=== PATIENT | male | born 1975 ===

== ENCOUNTER → 2022-03-17 15:16 | Outpatient (BNVA) | payer SELFPAY | PROVIDERS: Visit Provider Physician Assistant | DX: Z02.79 Encounter for issue of other medical certificate (principal) ==

== ENCOUNTER 2023-04-19 10:46 | Outpatient (REF) | payer BC, SELFPAY ==
[2023-04-19 13:59] LABS: Basophils Absolute Auto 0.1 X10*3/uL (0.0-0.2); Basophils Percent Auto 1.5 % (0-2); Eosinophils Absolute Auto 2.4 X10*3/uL (0.0-0.4); Eosinophils Percent Auto 36.3 % (0-4); Hemoglobin 14.3 g/dl (14.0-18.0); Imm Gran Abs Auto 0.01 X10*3/uL (0.00-0.03); Imm Gran Pct Auto 0.2 % (0.0-0.4); Lymphocytes Absolute Auto 2.1 X10*3/uL (1.2-4.9); Lymphocytes Percent Auto 31.5 % (20-40); MANUAL DIFF FLAG SCAN; Mean Corpuscular Hemoglobin 29.8 pg (27.0-33.0); Mean Corpuscular Volume 87.5 fL (80.0-98.0); Mean Platelet Volume 10.5 fL (9.4-12.4); Monocytes Absolute Auto 0.4 X10*3/uL (0.1-1.2); Monocytes Percent Auto 6.2 % (2-11); Neutrophils Absolute Auto 1.6 x10*3/uL (2.0-8.3); Neutrophils Percent Auto 24.3 % (45-73); Platelet Count 248 X10*3/uL (160-400); Red Cell Distribution Width 12.6 % (11.0-16.0); SCAN SMEAR FLAG 1; White Blood Count 6.5 X10*3/uL (4.8-10.8)
[2023-04-19 14:09] LABS: Alanine Aminotransferase 36 U/L (0-40); Albumin Level 4.4 g/dL (3.5-5.0); Alkaline Phosphatase 62 U/L (39-117); Anion Gap 10 (12-20); Aspartate Amino Transferase 26 U/L (5-37); Bilirubin Direct 0.2 mg/dL (0.0-0.5); Bilirubin Total 0.9 mg/dL (0.0-1.0); Blood Urea Nitrogen 20 mg/dL (9-16); Calcium 9.3 mg/dL (8.4-10.2); Carbon Dioxide 27 mmol/L (22-29); Chloride 107 mmol/L (96-108); Cholesterol 194 mg/dL (<200); Estimated Glomerular Filt Rate > 60; Glucose Random 87 mg/dL (60-115); HDL Cholesterol 41 mg/dL (>40); LDL Cholesterol Calculated 109 mg/dL (<100); Potassium 3.9 mmol/L (3.3-5.1); Sodium 140 mmol/L (135-145); Total Protein 7.4 g/dL (6.5-8.0); Triglycerides 222 mg/dL (<150)
[2023-04-19 14:33] LABS: PSA,Total (Free>4and<10) 0.25 ng/mL (0.00-4.00)
[2023-04-19 15:11] LABS: Estimated Average Glucose 97 mg/dL
[2023-04-19 15:20] LABS: SLIDE REVIEW VERIFIED
[2023-04-20 04:36] LABS: HIV AB/AG Nonreactive (Nonreactive); HIV Num 1 0.06 S/CO (0.00-0.99); ~HepC Num1 0.14 S/CO (0.00-0.79); ~Hepatitis C Antibody Nonreactive (Nonreactive)
== END 2023-04-19 10:47 | disposition home or self-care (01) ==
LOC: HO.HHCL 10:46
PROVIDERS: Visit Provider Internal Medicine
DX: Z12.5 Encounter for screening for malignant neoplasm of prostate (principal); Z11.4 Encounter for screening for human immunodeficiency virus [HIV]; Z13.6 Encounter for screening for cardiovascular disorders; R03.0 Elevated blood-pressure reading, without diagnosis of hypertension; R35.0 Frequency of micturition
CPT/HCPCS: 36415; 80048; 80061; 80076; 83036; 84153; 85025; 86803; 87389

== ENCOUNTER 2023-08-14 15:02 | Outpatient (AMB) | payer BC, SELFPAY ==
--- NOTE | 2023-08-14 15:12 | MHC.OFFVIS ---
Intake Visit Reasons: urinary frequency Intake Note: New patient is present for Urinary Frequency Recent PSA: 04/19/23 - 0.25 Antibiotic Allergies: Blood Thinner: None PVR: 0 Patient states that he frequently has to urinate during the day. States he has to go right away after eating fruit and drinking water. Patient reports that he gets up twice during the night to urinate. Patient has tried OTC medication that he states works that he purchased at [employer], pt can not remember the name of the OTC medication. Allergies No Known Allergies Allergy (Verified 08/14/23 15:37) Medication List - Last Reconciled 08/14/23 by Eran Zamarripa MD cyclobenzaprine 10 mg PO BEDTIME ibuprofen 600 mg PO TID mirabegron ER (Myrbetriq) 50 mg PO DAILY HPI Comments Details: Radu is a 47-year-old male who is here for evaluation due to urinary urgency and frequency. The patient is a trash collector truck driver and states that the lower urinary tract symptoms are bothersome because he has not able to easily get to a bathroom. He has currently not taking any medications for the prostate or bladder. I have discussed that there are certain professionals where patients may not use the bathroom often such as nurses, teachers and truck drivers fall into this category, where we do see bladder muscle remodeling over a period of time, causing bladder spasms. I have discussed avoiding dietary bladder irritants such as caffeine spicy foods acid foods or drinks including orange juice. The patient states he does drink a lot of coffee throughout the day to keep him alert but he will try to cut back on the caffeine intake. Urinalysis is negative leukocytes negative blood negative. Bladder scan PVR 0 mL. PSA--04/19/2023--0.25 ng/mL. I will trial Myrbetriq 50 mg daily. Renal/bladder ultrasound ordered. [facility] Medical History Elevated blood pressure reading Onychomycosis of great toe Black head Acne History of urinary frequency Review of Systems Const All systems reviewed & are unremarkable except as noted in HPI and below Reports no additional complaints Eyes Reports no additional complaints ENT Reports no additional complaints Card Reports no additional complaints Resp Reports no additional complaints GI Reports no additional complaints Reports as per HPI Musc Reports no additional complaints Skin/Breast Reports system reviewed and no additional complaints, except as documented Neuro Reports no additional complaints Psych Reports no additional complaints Endo Reports no additional complaints Terrance/Lymph Reports no additional complaints Aller/Immun Reports no additional complaints Physical Exam Const General: healthy appearing, no acute distress and well developed Orientation/consciousness: patient oriented x3 HEENT Head: Yes normocephalic and Yes atraumatic Eyes Conjunctivae: conjunctivae normal Neck Neck: Yes normal visual inspection Chest Chest palpation & inspection: normal inspection of the chest Resp Effort & Inspection: normal respiratory effort Cardio Rate: regular rate GI Inspection: Yes normal to inspection Skin General skin exam: no rashes or lesions noted Neuro General: patient oriented x3 Extrem General: No pedal edema Psych Appearance: grossly normal Affect: normal affect Office Procedures Post Void Residual Post Residual Void Post Void Residual (PVR): 0 [id number] Void Residual by ultrasound Results AMB Urinalysis, Automated UA Leukoctes 0 Min/uL Last Edit by Candace Mcgowan [facility] on 08/14/23 15:39 UA Nitrite Negative Last Edit by Candace Mcgowan [facility] on 08/14/23 15:39 UA Urobilinogen 0.2 mg/dL Last Edit by Candace Mcgowan, A on 08/14/23 15:39 UA Protein 0 mg/dL Last Edit by Candace Mcgowan [facility] on 08/14/23 15:39 UA pH 7.5 Last Edit by Candace Mcgowan, A on 08/14/23 15:39 UA Blood 0 Kayden/uL Last Edit by Candace Mcgowan [facility] on 08/14/23 15:39 UA Specific [place] 1.005 Last Edit by Candace Mcgowan [facility] on 08/14/23 15:39 UA Ketone Negative Last Edit by Candace Mcgowan A on 08/14/23 15:39 UA Bilirubin 0 mg/dL Last Edit by Candace Mcgowan [facility] on 08/14/23 15:39 UA Glucose 0 mg/dL Last Edit by Candace Mcgowan A on 08/14/23 15:39 Quality Reporting (2019) Benign Prostatic Hyperplasia ([facility] 771) AUA symptom score: 9 Quality of life due to urinary symptoms: If you were to spend the rest of your life with your urinary condition the way it is now, how would you feel about that?: Mostly dissatisfied Results Reviewed Results Reviewed: Laboratory Last Values Urine pH (Auto) 7.5 08/14/23 15:26 Specific [place] (Auto) 1.005 08/14/23 15:26 Urine Protein (Auto) 0 mg/dL 08/14/23 15:26 Glucose (UA)(Auto) 0 mg/dL 08/14/23 15:26 Urine Ketones (Auto) Negative 08/14/23 15:26 Urine Blood (Auto) 0 Kayden/uL 08/14/23 15:26 Urine Nitrite (Auto) Negative 08/14/23 15:26 Urine Bilirubin (Auto) 0 mg/dL 08/14/23 15:26 Urine Urobilinogen (Auto) 0.2 mg/dL 08/14/23 15:26 Leukocyte Esterase (Auto) 0 Min/uL 08/14/23 15:26 Assessment & Plan Assessment & Plan (1) Urinary frequency: Code(s): R35.0 - Frequency of micturition Category: Medical (2) OAB (overactive bladder): Code(s): N32.81 - Overactive bladder Category: Medical Plan I will trial Myrbetriq 50 mg daily. Renal/bladder ultrasound ordered. Behavioral modification decrease caffeine intake. Follow-up discussed ultrasound results Orders: Orders AMB Post Void Residual by ultrasound 08/14/23 Z87.898 - Personal history of other specified conditions AMB Urinalysis Automated 08/14/23 Z13.9 - Encounter for screening, unspecified Medications: New mirabegron ER (Myrbetriq) 50 mg PO DAILY 30 tabs 3RF Patient Instructions: The patient had an opportunity to ask questions regarding treatment plan. The patient expressed understanding and agreement with the above treatment plan. The patient is aware they should contact our office by phone for worsening of their current condition or the appearance of new symptoms. Compliance is encouraged with any medications and followup testing that is ordered. It is a privilege to be allowed the opportunity to participate in the urologic care of your patient. If you have any questions or concerns regarding treatment for the above conditions please do not hesitate to contact me. The office telephone contact is [phone]. This note is constructed in part using voice recognition software. While every effort has been made to ensure accuracy resp ther errors may have been included. Yours sincerely, Eran Zamarripa MD Coding Level of Care Code New Pt Level 4 (23091) Diagnoses Urinary frequency R35.0 OAB (overactive bladder) N32.81 CPT Codes Post Residual Void - PVR CPT Code: 61772-[id number] Void Residual by ultrasound ([id number]) AUA Symptom Score AUA Incomplete emptying - It does not feel like I empty my bladder all the way.: 0 - Not at all Frequency - I have to go again less than two hours after I finish urinating.: 4 - More than half the time Intermittency - I stop and start again several times when I urinate.: 0 - Not at all Urgency - It is hard to wait when I have to urinate.: 3 - About half the time Weak stream - I have a weak urinary stream.: 0 - Not at all Straining - I have to push or strain to begin urination.: 0 - Not at all Nocturia - I get up to urinate after I go to bed until the time I get up in the morning.: 2 times AUA Symptom Score: 9 Quality of life due to urinary symptoms: If you were to spend the rest of your life with your urinary condition the way it is now, how would you feel about that?: Mostly dissatisfied Source: Vasquez ORTEZ, Shirley TINEO Jr, [place] MP, et al, and the Measurement Committee of the [employer]. The [employer] [employer] symptom index for benign prostatic hyperplasia. J Urol. 1992; 148: 7142-3666. Copyright 1992 [employer] [employer]
== END 2023-08-14 16:07 | disposition home or self-care (01) ==
PROVIDERS: PCP Internal Medicine; Visit Provider Urology
DX: R35.0 Frequency of micturition (principal); N32.81 Overactive bladder
CPT/HCPCS: 99204

== ENCOUNTER → 2023-08-14 15:02 | Outpatient (BNVA) | payer BC, SELFPAY | PROVIDERS: PCP Internal Medicine; Visit Provider Urology | DX: R35.0 Frequency of micturition (principal); N32.81 Overactive bladder | CPT/HCPCS: 51798; 81003 ==